=== PATIENT | male | born 1960 | race Two or more races ===

== ENCOUNTER 2018-02-28 23:22 | Inpatient (IN) | payer MEDICAID, OTHER ==
[~2018-02-28] VITALS: Ht 195.6 cm; Wt 112.0 kg
[~2018-02-28 23:22] MED LIST: CEPH-376 PO; LACT10SO5 PO; OXYC5TAB3 PO
[2018-03-01] MEDS ORDERED: MORPHINE SULFATE 4 MG/ML, 1ML IVPush PRN
[2018-03-01] MEDS ORDERED: SODIUM CHLORIDE 0.9% 1,000ML IVBOLUS ONE
[2018-03-01] MEDS ORDERED: PIPERACILLIN/TAZO/PMX 3.375GM 50 ML IVPB ONE
[2018-03-01] MEDS ORDERED: VANCOMYCIN PER PHARMACY MC ONE
[2018-03-01] MEDS ORDERED: SODIUM CHLORIDE FLUSH 10ML SYR IVF ONE
[2018-03-01] MEDS ORDERED: PIPERACILLIN/TAZO/PMX 3.375GM 50 ML ONE (00:17)
[2018-03-01] MEDS ORDERED: KETOROLAC 30 MG/1 ML ONE (00:17)
[2018-03-01 00:25] LABS: BASOPHILS # (AUTO) 0.05 x10^3/uL (0-0.1); BASOPHILS % (AUTO) 1 % (0-1); EOSINOPHILS % (AUTO) 4 % (1-7); LYMPHOCYTES # (AUTO) 1.57 x10^3/uL (1-3.4); LYMPHOCYTES % (AUTO) 22 % (22-44); MD NO; MEAN CORPUSCULAR HEMOGLOBIN 29.8 pg (27.5-34.5); MEAN CORPUSCULAR HGB CONC 33.4 g/dL (33.2-36.2); MEAN CORPUSCULAR VOLUME 89.2 fL (81-97); MEAN PLATELET VOLUME 7.7 fL (7.4-10.4); MONOCYTES # (AUTO) 0.55 x10^3/uL (0.2-0.8); MONOCYTES % (AUTO) 8 % (2-9); NEUTROPHILS # (AUTO) 4.83 x10^3/uL (1.8-6.8); NEUTROPHILS % (AUTO) 66 % (42-75); PLATELET COUNT 329 x10^3/uL (130-400); RED BLOOD COUNT 4.27 x10^6/uL (4.38-5.82); RED CELL DISTRIBUTION WIDTH 13.9 % (9.4-14.8)
[2018-03-01] MEDS ORDERED: VANCOMYCIN 2,000 MG in SODIUM CHLORIDE 0.9% 500 ML IV ONE (00:30)
[2018-03-01 00:37] LABS: ALANINE AMINOTRANSFERASE 52 U/L (12-78); ALBUMIN 2.8 g/dL (3.4-5.0); ANION GAP 8 mmol/L (5-15); CALCIUM 8.8 mg/dL (8.5-10.1); CHLORIDE 109 mmol/L (98-107)
[2018-03-01 00:40] LABS: ALKALINE PHOSPHATASE 92 U/L (45-117); BILIRUBIN,TOTAL 0.4 mg/dL (0.2-1.0); CREATININE 1.16 mg/dL (0.7-1.3)
[2018-03-01 00:43] LABS: PROTHROMBIN TIME 10.3 Seconds (9.6-11.5)
[2018-03-01] MEDS ORDERED: KETOROLAC 30 MG/1 ML IVPush ONE ×2 (01:30)
[2018-03-01] MEDS ORDERED: DIPH,PERTUSS(ACELL),TET VAC/PF 0.5 ML IM-VACC ONE ×2 (01:30→01:56)
[2018-03-01] MEDS ORDERED: POLYETHYLENE GLYCOL 17 GM PACKET PO PRN (02:30)
[2018-03-01] MEDS ORDERED: ONDANSETRON 2MG/ML, 2ML IVPush PRN (02:30)
[2018-03-01] MEDS ORDERED: PROMETHAZINE 25 MG/ML, 1ML IM PRN (02:30)
[2018-03-01] MEDS ORDERED: ONDANSETRON ODT 4 MG PO PRN (02:30)
[2018-03-01] MEDS ORDERED: hydrALAzine 20 MG/ML, 1ML IVPush PRN (02:30)
[2018-03-01] MEDS ORDERED: ACETAMINOPHEN 325 MG TABLET PO PRN (02:30)
[2018-03-01] MEDS ORDERED: DOCUSATE 100 MG CAPSULE PO PRN (02:30)
[2018-03-01] MEDS ORDERED: OXYcodone IR 5MG TABLET PO PRN (02:30)
[2018-03-01] MEDS ORDERED: BISACODYL 10 MG SUPP PR PRN (02:30)
[2018-03-01] MEDS ORDERED: morphine SULFATE 10 MG/ML, 1ML IVPush PRN (02:30)
[2018-03-01 02:37] VITALS: BP 155/83
[2018-03-01 02:46] LABS: FREE T4 (FREE THYROXINE) 1.23 ng/dL (0.76-1.46); THYROID STIMULATING HORMONE 2.29 mIU/L (0.358-3.740)
[2018-03-01] MEDS: HEPARIN 5,000 UNITS/ML, 1ML SQ SCH ×3 (03:29→17:34)
[2018-03-01] MEDS: NICOTINE 7 MG/24 HR PATCH.TD24 TD SCH (03:30)
[2018-03-01] MEDS: CEFTAROLINE 600 MG in SODIUM CHLORIDE 0.9% 100 ML IV SCH ×2 (03:45→12:30)
[2018-03-01 06:45] VITALS: BP 136/86
[2018-03-01 07:22] LABS: MICROSCOPIC NOT IND
[2018-03-01 07:57] LABS: CULTURE INDICATED? NO
[2018-03-01] MEDS ORDERED: GADOBUTROL 10 MMOL/10 ML PFS ONE (11:33)
[2018-03-01 13:57] VITALS: BP 157/89
[2018-03-01 14:07] LABS: HCT (SEDRATE) 30.7 % (39.2-51.8)
[2018-03-01 14:20] LABS: C-REACTIVE PROTEIN, QUANT 2.6 mg/dL (0.02-0.49)
[2018-03-01 19:01] VITALS: BP 153/97
[2018-03-02 01:28] VITALS: BP 144/89
[2018-03-02] MEDS: HEPARIN 5,000 UNITS/ML, 1ML SQ SCH ×3 (01:50→20:15)
[2018-03-02] MEDS: CEFTAROLINE 600 MG in SODIUM CHLORIDE 0.9% 100 ML IV SCH ×2 (01:50→16:38)
[2018-03-02] MEDS: NICOTINE 7 MG/24 HR PATCH.TD24 TD SCH (01:50)
[2018-03-02 05:46] LABS: BASOPHILS # (AUTO) 0.04 x10^3/uL (0-0.1); BASOPHILS % (AUTO) 1 % (0-1); EOSINOPHILS % (AUTO) 5 % (1-7); LYMPHOCYTES # (AUTO) 1.14 x10^3/uL (1-3.4); LYMPHOCYTES % (AUTO) 25 % (22-44); MD NO; MEAN CORPUSCULAR HEMOGLOBIN 29.5 pg (27.5-34.5); MEAN CORPUSCULAR HGB CONC 33.4 g/dL (33.2-36.2); MEAN CORPUSCULAR VOLUME 88.3 fL (81-97); MEAN PLATELET VOLUME 7.6 fL (7.4-10.4); MONOCYTES # (AUTO) 0.41 x10^3/uL (0.2-0.8); MONOCYTES % (AUTO) 9 % (2-9); NEUTROPHILS # (AUTO) 2.68 x10^3/uL (1.8-6.8); NEUTROPHILS % (AUTO) 60 % (42-75); PLATELET COUNT 293 x10^3/uL (130-400); RED BLOOD COUNT 4.03 x10^6/uL (4.38-5.82); RED CELL DISTRIBUTION WIDTH 13.5 % (9.4-14.8)
[2018-03-02 05:52] LABS: ALANINE AMINOTRANSFERASE 35 U/L (12-78); ALBUMIN 2.3 g/dL (3.4-5.0); ANION GAP 7 mmol/L (5-15); CALCIUM 7.9 mg/dL (8.5-10.1); CHLORIDE 111 mmol/L (98-107); CHOLESTEROL, TOTAL 99 mg/dL (140-239); CREATININE 0.94 mg/dL (0.7-1.3)
[2018-03-02 05:54] LABS: ALKALINE PHOSPHATASE 84 U/L (45-117); BILIRUBIN,TOTAL 0.2 mg/dL (0.2-1.0); CHOL/HDL RATIO 4.7; HDL CHOL % 21 % (26-37); HDL CHOLESTEROL (DIRECT) 21 mg/dL (40-60); LDL CHOLESTEROL,CALCULATED 64 mg/dL (54-169); TOTAL PROTEIN 6.7 g/dL (6.4-8.2); TRIGLYCERIDES 69 mg/dL (50-200); VLDL CHOLESTEROL 14 mg/dL (0-25)
[2018-03-02 06:58] VITALS: BP 135/92
[2018-03-02] MEDS ORDERED: ERGOCALCIFEROL 50,000 UNIT CAPSULE PO SCH (12:00)
[2018-03-02 13:21] VITALS: BP 132/78
[2018-03-02 19:53] VITALS: BP 132/80
[2018-03-03 01:18] VITALS: BP 130/82
[2018-03-03] MEDS: NICOTINE 7 MG/24 HR PATCH.TD24 TD SCH (02:45)
[2018-03-03] MEDS: CEFTAROLINE 600 MG in SODIUM CHLORIDE 0.9% 100 ML IV SCH (04:30)
[2018-03-03] MEDS: HEPARIN 5,000 UNITS/ML, 1ML SQ SCH ×3 (04:30→20:30)
[2018-03-03 07:41] VITALS: BP 157/97
[2018-03-03] MEDS ORDERED: VANCOMYCIN PMX 1GM/200ML 200 ML IV ONE (11:00)
[2018-03-03] MEDS ORDERED: PHARMACOKINETIC MONITORING MC PRN (11:00)
[2018-03-03] MEDS ORDERED: VANCOMYCIN PER PHARMACY MC PRN (11:00)
[2018-03-03] MEDS: PIPERACILLIN/TAZO/PMX 3.375GM 50 ML IV SCH ×3 (11:57→23:37)
[2018-03-03] MEDS: VANCOMYCIN 2,000 MG in SODIUM CHLORIDE 0.9% 500 ML IV SCH (12:40)
[2018-03-03 14:10] VITALS: BP 148/90
[2018-03-03] MEDS ORDERED: FUROSEMIDE 20 MG/2 ML IV ONE (16:00)
[2018-03-03 21:51] VITALS: BP 143/83
[2018-03-04 00:32] VITALS: BP 117/64
[2018-03-04] MEDS: VANCOMYCIN 2,000 MG in SODIUM CHLORIDE 0.9% 500 ML IV SCH ×2 (00:32→12:54)
[2018-03-04] MEDS: NICOTINE 7 MG/24 HR PATCH.TD24 TD SCH (02:30)
[2018-03-04] MEDS: HEPARIN 5,000 UNITS/ML, 1ML SQ SCH ×3 (05:35→20:07)
[2018-03-04] MEDS: PIPERACILLIN/TAZO/PMX 3.375GM 50 ML IV SCH ×3 (05:35→20:07)
[2018-03-04 08:12] VITALS: BP 128/83
[2018-03-04] MEDS: MUPIROCIN OINT 2%, 22GM TP SCH (11:33)
[2018-03-04 13:09] VITALS: BP 131/81
[2018-03-04 13:20] LABS: ANION GAP 5 mmol/L (5-15); CALCIUM 8.4 mg/dL (8.5-10.1); CHLORIDE 109 mmol/L (98-107); CREATININE 1.17 mg/dL (0.7-1.3)
[2018-03-04 20:09] VITALS: BP 123/72
[2018-03-05] MEDS: VANCOMYCIN 2,000 MG in SODIUM CHLORIDE 0.9% 500 ML IV SCH (00:55)
[2018-03-05 02:10] VITALS: BP 131/82
[2018-03-05] MEDS: NICOTINE 7 MG/24 HR PATCH.TD24 TD SCH ×2 (03:01→22:00)
[2018-03-05] MEDS: PIPERACILLIN/TAZO/PMX 3.375GM 50 ML IV SCH ×4 (03:01→21:22)
[2018-03-05] MEDS: HEPARIN 5,000 UNITS/ML, 1ML SQ SCH ×3 (03:29→21:23)
[2018-03-05 06:53] VITALS: BP 135/82
[2018-03-05] MEDS: MUPIROCIN OINT 2%, 22GM TP SCH (09:11)
[2018-03-05 12:19] VITALS: BP 125/74
[2018-03-05 19:20] VITALS: BP 130/67
[2018-03-06 01:36] VITALS: BP 128/71
[2018-03-06] MEDS: PIPERACILLIN/TAZO/PMX 3.375GM 50 ML IV SCH ×4 (02:49→22:02)
[2018-03-06] MEDS: HEPARIN 5,000 UNITS/ML, 1ML SQ SCH ×3 (04:53→22:02)
[2018-03-06 05:53] LABS: CREATININE 1.33 mg/dL (0.7-1.3); VANCOMYCIN,RANDOM 8.7 mcg/mL
[2018-03-06 06:45] VITALS: BP 122/75
[2018-03-06] MEDS: MUPIROCIN OINT 2%, 22GM TP SCH (10:01)
[2018-03-06] MEDS: VANCOMYCIN 2,000 MG in SODIUM CHLORIDE 0.9% 500 ML IV SCH (10:55)
[2018-03-06 14:08] VITALS: BP 124/77
[2018-03-06 18:53] VITALS: BP 140/82
[2018-03-06] MEDS: NICOTINE 7 MG/24 HR PATCH.TD24 TD SCH (22:03)
[2018-03-07 01:04] VITALS: BP 133/68
[2018-03-07] MEDS: PIPERACILLIN/TAZO/PMX 3.375GM 50 ML IV SCH ×2 (04:13→11:09)
[2018-03-07] MEDS: VANCOMYCIN 2,000 MG in SODIUM CHLORIDE 0.9% 500 ML IV SCH (05:01)
[2018-03-07] MEDS: HEPARIN 5,000 UNITS/ML, 1ML SQ SCH ×2 (06:09→14:37)
[2018-03-07 07:25] VITALS: BP 136/89
[2018-03-07] MEDS: MUPIROCIN OINT 2%, 22GM TP SCH (08:23)
[2018-03-07] MEDS: NICOTINE 7 MG/24 HR PATCH.TD24 TD SCH (08:30)
[2018-03-07 12:43] VITALS: BP 127/77
== END 2018-03-07 15:00 | disposition left against medical advice (07) | DRG 603 ==
LOC: ED 23:59 → EDIP 03-01 01:51 → 4WST 03-01 02:33 → 3NW 03-03 00:11
PROVIDERS: ADMIT Internal Medicine; ATTEND Internal Medicine
DX: L03.115 Cellulitis of right lower limb (principal); E44.0 Moderate protein-calorie malnutrition; B95.62 Methicillin resistant Staphylococcus aureus infection as the cause of diseases classified elsewhere; D64.9 Anemia, unspecified; E11.9 Type 2 diabetes mellitus without complications; E55.9 Vitamin D deficiency, unspecified; F12.10 Cannabis abuse, uncomplicated; F15.10 Other stimulant abuse, uncomplicated; F17.210 Nicotine dependence, cigarettes, uncomplicated; M20.40 Other hammer toe(s) (acquired), unspecified foot; M60.9 Myositis, unspecified; M77.30 Calcaneal spur, unspecified foot; Z87.820 Personal history of traumatic brain injury; Z91.19 Patient's noncompliance with other medical treatment and regimen; Z68.29 Body mass index [BMI] 29.0-29.9, adult; Z53.21 Procedure and treatment not carried out due to patient leaving prior to being seen by health care provider
CPT/HCPCS: 36415; 80048; 80053; 80061; 80202; 81003; 82306; 82550; 82565; 83605; 83735; 84145; 84439; 84443; 85025; 85610; 85651; 85730; 86140; 87040; 87070; 87077; 87147; 87186; 87205; 90715; 93306; 93922; 96365; 96366; 96368; 99285; A9585; J0712; J1644; J1885; J2543; J3370; J1940; J7030; J7040